=== PATIENT | female | born 2005 | race Caucasian/White ===

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

== ENCOUNTER 2024-10-11 12:07 | Emergency (ER) | payer SELFPAY ==
--- OUTSIDE RECORDS SUMMARY | 2024-10-11 12:11 | XMS REPORT | Continuity of Care Document ---
Author Name Unknown Address [address] [place] [address] [facility] thconnect Address [address] [place] [address] Care Team Providers Care Adhesion Tester Name Role Phone Muna Paredes Primary Care Physicia n DINO TREVINO Attending Clinician Unavailable DINO TREVINO Attending Clinician Unavailable Lory Cooper OD Attending Clinician [phone] Muna Paredes Attending Clinician + PARRISH LOWE Attending Clinician Unavail able Parrish Lowe OD Attending Clinician [phone] LORY COOPER Attending Clinician Unavailable MUNA LOPEZ Attending Clinician Unavail able Lory Cooper OD Attending Clinician [phone] PONCHO GREENWOOD Attending Clinician Unavailable PONCHO GREENWOOD Attending Clinician Unavailable Doctor Unassigned, Balm Attending Clinician U Aren Osei Attending Clinician UnaWAQAR Chavez Attending Clinician Unavailable DANIEL THOMAS Attending Clinician UnavailPantera Ferguson Attending Clinician + [phone] Unknown, Attending Attending Clinician Unavailab PANTERA Peace Attending Clinician Unavailab AREN Gonsales Attending Clinician Unavailab marie Bañuelos MD, Main Attending Clinician Dion Trevino MD Attending Clinician [phone] JUAN LUIS ALVARADO Attending Clinician Unavailable Lab, [facility] Attending Clinician Unavailable 3, [facility] Attending Clinician UnavailDINO Sorto Admitting Clinician Unavailable Dino Trevino MD Admitting Clinician [phone] JUAN LUIS ALVARADO Admitting Clinician Unavailable Payers Payer Name Policy Type Policy Number Effective Date Expirati on Date Source [facility] [id number] 2016 00:00:00 MEDICAID PENDING PENDING 2021 00:00:00 Problems Condition Name Condition Details Condition Category Status Onset Date Resolution Date Last Treatment Date Treating Clinician Comments Source Well woman exam Well woman exam Disease Active 05-24 00:00: 00 [facility] Need for HPV vaccinatio n Need for HPV vaccinatio n Disease Active 8 00:00: 00 [facility] Other general counseling and advice for contracept mali management Other general counseling and advice for contracept mali management Disease Active 15 00:00: 00 [facility] endometrit is endometrit is Disease Active 7-06 00:00: 00 [facility] Mild pre-eclamp devi in third trimester Mild pre-eclamp devi in third trimester Disease Active 6-25 00:00: 00 [facility] BMI 25.0-25.9, adult BMI 25.0-25.9, adult Disease Active 6-24 00:00: 00 [facility] BMI 25.0-25.9, adult BMI 25.0-25.9, adult Disease Active -24 00:00: 00 [facility] Examinatio n of blood pressure Examinatio n of blood pressure Disease Resolve d 7- 00:00: 00 2023-05-24 00:00:00 2023-05-24 09:28:35 [facility] (normal spontaneou s vaginal delivery) (normal spontaneou s vaginal delivery) Disease Resolve d 2021-0 6-25 00:00: 00 2022-04-28 00:00:00 2022-04-28 11:43:26 [facility] Single live Single live Disease Resolve d 2021-0 6-25 00:00: 00 2022-04-28 00:00:00 2022-04-28 11:43:23 [facility] 39 weeks gestation of 39 weeks gestation of Disease Resolve d 2021-0 6-24 00:00: 00 2022-04-28 00:00:00 2022-04-28 11:43:34 [facility] Supervisio n of high risk , antepartum Supervisio n of high risk , antepartum Disease Resolve d 2021-0 2-02 00:00: 00 2022-04-28 00:00:00 2022-04-28 11:43:22 [facility] Primigravi da in second trimester Primigravi da in second trimester Disease Resolve d 2021-0 2-02 00:00: 00 2022-04-28 00:00:00 2022-04-28 11:43:24 [facility] High risk teen in third trimester High risk teen in third trimester Disease Resolve d 2021-0 2-02 00:00: 00 2022-04-28 00:00:00 2022-04-28 11:43:31 [facility] Late care Late care Disease Resolve d 2021-0 2-02 00:00: 00 2022-04-28 00:00:00 2022-04-28 11:43:29 [facility] Chlamydia Chlamydia Disease Resolve d 2021-0 3-31 00:00: 00 2022-04-08 00:00:00 2022-04-08 04:06:35 [facility] Indication for care or interventi on in labor or delivery Indication for care or interventi on in labor or delivery Disease Resolve d 2021-0 6-24 00:00: 00 2022-04-07 00:00:00 2022-04-07 15:48:57 [facility] Allergies, Adverse Reactions, Alerts Allergy Name Allergy Type Status Severity Reaction(s) Onset Date Inactive Date Treating Clinician Comments Source NO KNOWN ALLERGIE S Drug Class Active [facility] Social History Social Habit Start Date Stop Date Quantity Comments Source ASSERTION [facility] Gender identity [facility] Alcoholic beverage intake 2024-02-04 00:00:00 2024-02-04 00:00:00 Lifetime non-drinker (finding) [facility] Alcohol intake 2024-02-04 00:00:00 2024-02-04 00:00:00 Lifetime non-drinker (finding) [facility] Exposure to SARS-CoV-2 (event) 2023-01-22 00:00:00 2023-02-01 16:16:00 Not sure [facility] History of Social function 2023-01-03 00:00:00 2023-01-03 00:00:00 [facility] Tobacco use and exposure 2021-11-16 00:00:00 2021-11-16 00:00:00 Smokeless tobacco non-user [facility] Sex assigned at 2003 00:00:00 2005 00:00:00 [facility] Smoking Status Start Date Stop Date Source Never smoked tobacco [facility] Medications Ordered Medication Name Filled Medication Name Start Date Stop Date Current Medication? Ordering Clinician Indication Dosage Frequency Signature (SIG) Comments Components Source norelgestro min-ethinyl estradiol (XULANE) 150-35 mcg/24 hr patch 06-02 00:00: 00 Yes [id number] 1{patch } APPLY 1 PATCH TO SKIN WEEKLY [facility] norelgestro min-ethinyl estradiol (XULANE) 150-35 mcg/24 hr patch 05-24 00:00: 00 Yes [id number] 1{patch } Apply 1 Patch to skin weekly. [facility] norelgestro min-ethinyl estradiol (XULANE) 150-35 mcg/24 hr patch 04-05 00:00: 05-24 00:00 :00 No [id number] 1{patch } Apply 1 Patch to skin weekly. [facility] levonorgest rel-ethinyl estradiol (SRONYX) 0.1-20 mg-mcg per tablet 01-03 00:00: 00 05-24 00:00 :00 No [id number] 1{tbl} Take 1 tablet by mouth in the morning. [facility] norgestimat e-ethinyl estradioL (TRI-LO-EST ARYLLA) 0.18/0.215/ 0.25 mg-25 mcg tablet 10-23 00:00: 00 02-02 00:00 :00 No [id number] 1{tbl} Take 1 tablet by mouth every morning. [facility] TRI-LO-ESTA RYLLA 0.18/0.215/ 0.25 mg-25 mcg tablet 2021-10 00:00: 00 10-23 00:00 :00 No [id number] TAKE 1 TABLET BY MOUTH EVERY DAY IN THE MORNING [facility] oseltamivir (TAMIFLU) 75 mg capsule 2021-10 00:00: 00 09-17 05:59 :00 No [id number] 75mg Take 1 capsule by mouth in the morning and 1 capsule in the evening. Do all this for 5 days. [facility] bromphenira mine-pseudo ephedrine-D M 2-30-10 mg/5 mL syrup 2021-10 00:00: 00 09-17 05:59 :00 No [id number] 5mL Take 5 mL by mouth 4 (four) times daily as needed for Congestion /Allergies for up to 5 days. [facility] TRI-LO-ESTA RYLLA 0.18/0.215/ 0.25 mg-25 mcg tablet 2021-10 00:00: 00 09-22 00:00 :00 No [id number] TAKE 1 TABLET BY MOUTH EVERY DAY IN THE MORNING [facility] norgestimat e-ethinyl estradioL 0.18/0.215/ 0.25 mg-25 mcg tablet 06-05 00:00: 00 08-25 00:00 :00 No [id number] 1{tbl} Take 1 tablet by mouth in the morning. [facility] vit no.124/iron /folic ( VITAMIN ORAL) 6- 09:48: 49 04-09 00:00 :00 No Take by mouth. [facility] vit 33-iron-fol ic-dha (SELECT-OB + DHA) 29 mg iron-1 mg -250 mg combo pack 3- 00:00: 00 05-22 00:00 :00 No [id number] 1{packe t} Take 1 Packet by mouth daily. [facility] azithromyci n 500 mg tablet 11-18 00:00: 00 11-20 05:59 :00 No [id number] 1000mg Take 2 tablets by mouth daily for 1 day. [facility] Immunizations Ordered Immunization Name Filled Immunization Name Date Status Comments Source [facility] 2023-04-05 00:00:00 Completed [facility] HPV9 2023-04-05 00:00:00 Completed [facility] 2023-04-05 00:00:00 Completed [facility] HPV9 2023-04-05 00:00:00 Completed [facility] 2022-05-22 00:00:00 Completed [facility] 2022-05-22 00:00:00 Completed [facility] 2022-05-22 00:00:00 Completed [facility] HPV9 2022-05-22 00:00:00 Completed [facility] HPV9 2022-05-22 00:00:00 Completed [facility] HPV9 2022-05-22 00:00:00 Completed [facility] HPV9 2022-05-22 00:00:00 Completed [facility] HPV9 2022-05-22 00:00:00 Completed [facility] HPV9 2022-05-22 00:00:00 Completed [facility] HPV9 2022-05-22 00:00:00 Completed [facility] HPV9 2022-05-22 00:00:00 Completed [facility] HPV9 2022-05-22 00:00:00 Completed [facility] HPV9 2022-05-22 00:00:00 Completed [facility] HPV9 2022-05-22 00:00:00 Completed [facility] HPV9 2022-05-22 00:00:00 Completed [facility] HPV9 2022-05-22 00:00:00 Completed [facility] HPV9 2022-05-22 00:00:00 Completed [facility] HPV9 2022-05-22 00:00:00 Completed [facility] TDAP 2022-01-26 00:00:00 Completed [facility] TDAP 2022-01-26 00:00:00 Completed [facility] TDAP 2022-01-26 00:00:00 Completed [facility] TDAP 2022-01-26 00:00:00 Completed [facility] TDAP 2022-01-26 00:00:00 Completed [facility] TDAP 2022-01-26 00:00:00 Completed [facility] TDAP 2022-01-26 00:00:00 Completed [facility] TDAP 2022-01-26 00:00:00 Completed [facility] TDAP 2022-01-26 00:00:00 Completed [facility] TDAP 2022-01-26 00:00:00 Completed [facility] TDAP 2022-01-26 00:00:00 Completed [facility] TDAP 2022-01-26 00:00:00 Completed [facility] TDAP 2022-01-26 00:00:00 Completed [facility] TDAP 2022-01-26 00:00:00 Completed [facility] TDAP 2022-01-26 00:00:00 Completed [facility] TDAP 2022-01-26 00:00:00 Completed [facility] TDAP 2022-01-26 00:00:00 Completed [facility] TDAP 2022-01-26 00:00:00 Completed [facility] HPV9 Unknown Completed [facility] TDAP Unknown Completed [facility] HPV9 Unknown Completed [facility] TDAP Unknown Completed [facility] HPV9 Unknown Completed [facility] TDAP Unknown Completed [facility] HPV9 Unknown Completed [facility] TDAP Unknown Completed [facility] HPV9 Unknown Completed [facility] TDAP Unknown Completed [facility] HPV9 Unknown Completed [facility] TDAP Unknown Completed [facility] TDAP Unknown Completed [facility] TDAP Unknown Completed [facility] HPV9 Unknown Completed [facility] TDAP Unknown Completed [facility] HPV9 Unknown Completed [facility] TDAP Unknown Completed [facility] HPV9 Unknown Completed [facility] TDAP Unknown Completed [facility] Vital Signs Vital Name Observation Time Observation Value Comments S ource Body weight 2024-02-04 18:07:00 58.968 kg [facility] Systolic blood pressure 2023-05-24 14:04:00 101 mm[Hg] [facility] Diastolic blood pressure 2023-05-24 14:04:00 73 mm[Hg] [facility] Heart rate 2023-05-24 14:04:00 72 /min [facility] Body temperature 2023-05-24 14:04:00 36.11 Skye [facility] Respiratory rate 2023-05-24 14:04:00 18 /min [facility] Body height 2023-05-24 14:04:00 167.6 cm [facility] Body weight 2023-05-24 14:04:00 59.081 kg [facility] BMI 2023-05-24 14:04:00 21.02 kg/m2 [facility] Systolic blood pressure 2023-04-05 20:35:00 113 mm[Hg] [facility] Diastolic blood pressure 2023-04-05 20:35:00 65 mm[Hg] [facility] Heart rate 2023-04-05 20:35:00 71 /min [facility] Body temperature 2023-04-05 20:35:00 36.83 Skye [facility] Respiratory rate 2023-04-05 20:35:00 16 /min [facility] Body height 2023-04-05 20:35:00 167.6 cm [facility] Body weight 2023-04-05 20:35:00 58.333 kg [facility] BMI 2023-04-05 20:35:00 20.76 kg/m2 [facility] Systolic blood pressure 2023-01-03 19:47:00 123 mm[Hg] [place] [facility] Diastolic blood pressure 2023-01-03 19:47:00 81 mm[Hg] [facility] Heart rate 2023-01-03 19:47:00 107 /min [facility] Body temperature 2023-01-03 19:47:00 37 Skye [facility] Respiratory rate 2023-01-03 19:47:00 18 /min [facility] Body height 2023-01-03 19:47:00 167.6 cm [facility] Body weight 2023-01-03 19:47:00 60.056 kg [facility] BMI 2023-01-03 19:47:00 21.37 kg/m2 [facility] Systolic blood pressure 2022-10-23 19:19:00 115 mm[Hg] [facility] Diastolic blood pressure 2022-10-23 19:19:00 70 mm[Hg] [facility] Heart rate 2022-10-23 19:19:00 78 /min [facility] Body temperature 2022-10-23 19:19:00 36.5 Skye [facility] Respiratory rate 2022-10-23 19:19:00 20 /min [facility] Body height 2022-10-23 19:19:00 167.6 cm [facility] Body weight 2022-10-23 19:19:00 60.601 kg [facility] BMI 2022-10-23 19:19:00 21.56 kg/m2 [facility] Body mass index (BMI) [Percentile] Per age and sex 2022-10-23 19:19:00 50.73 % [facility] Systolic blood pressure 2022-09-12 00:06:00 110 mm[Hg] [facility] Diastolic blood pressure 2022-09-12 00:06:00 73 mm[Hg] [facility] Heart rate 2022-09-12 00:06:00 103 /min [facility] Body temperature 2022-09-12 00:06:00 37.22 Skye [facility] Respiratory rate 2022-09-12 00:06:00 17 /min [facility] Body height 2022-09-12 00:06:00 167.6 cm [facility] Body weight 2022-09-12 00:06:00 58.968 kg [facility] BMI 2022-09-12 00:06:00 20.98 kg/m2 [facility] Body mass index (BMI) [Percentile] Per age and sex 2022-09-12 00:06:00 43.60 % [facility] Oxygen saturation in Arterial blood by Pulse oximetry 2022-09-12 00:06:00 98 /min [facility] Systolic blood pressure 2022-07-26 20:19:00 115 mm[Hg] [facility] Diastolic blood pressure 2022-07-26 20:19:00 70 mm[Hg] [facility] Heart rate 2022-07-26 20:19:00 86 /min [facility] Body temperature 2022-07-26 20:19:00 36.67 Skye [facility] Respiratory rate 2022-07-26 20:19:00 16 /min [facility] Body height 2022-07-26 20:19:00 167.6 cm [facility] Body weight 2022-07-26 20:19:00 61.326 kg [facility] BMI 2022-07-26 20:19:00 21.82 kg/m2 [facility] Body mass index (BMI) [Percentile] Per age and sex 2022-07-26 20:19:00 54.65 % [facility] Oxygen saturation in Arterial blood by Pulse oximetry 2022-07-26 20:19:00 99 /min [facility] Systolic blood pressure 2022-06-05 18:14:00 131 mm[Hg] [facility] Diastolic blood pressure 2022-06-05 18:14:00 80 mm[Hg] [facility] Heart rate 2022-06-05 18:14:00 77 /min [facility] Body temperature 2022-06-05 18:14:00 35.89 Skye [facility] Respiratory rate 2022-06-05 18:14:00 18 /min [facility] Body weight 2022-06-05 18:14:00 61.689 kg [facility] Procedures Procedure Date / Time Performed Performing Clinicia n Source GARDASIL 9 (HPV 9V) VACCINE 2023-04-05 20:48:14 Muna Lopez [facility] REFERRAL- REQUEST/RESPONSE 2023-01-29 05:01:00 Doctor Unassigned, Balm [facility] POCT MOLECULAR FLU 2022-09-12 00:09:00 Unknown, Attend ing [facility] POCT MOLECULAR STREP 2022-09-12 00:08:00 Unknown, Atte nding [facility] POCT TEST 2022-06-05 18:21:00 Daily Morgan [facility] Encounters Start Date/Time End Date/Time Encounter Type Admission Type Attending Clinicians Care Facility Care Department Encounter ID Source 2022-04-19 00:06:35 Outpatient P DINO TREVINO SANGEETA [facility] PRABHJOT [id number] [facility] 2024-07-18 00:00:00 2024-08-23 18:26:05 Patient Secure Lory Pollard [facility] [place] [id number] [id number] [id number] [facility] 2024-03-15 00:00:00 2024-03-17 09:52:08 Refill Muna Lopez [facility] MANAGER [facility] [id number] 350.1.13.10 [id number] [id number] [facility] 2024-02-04 13:00:00 2024-02-04 13:39:22 Outpatient R PARRISH LOWE [facility] [id number] [facility] 2024-02-04 13:00:00 2024-02-04 13:39:22 Office Visit Parrish Lowe [facility] [id number] [id number] [id number] [id number] [facility] 2023-08-07 15:00:00 2023-08-07 15:00:00 Outpatient R [facility] [id number] [facility] 2023-05-24 09:00:00 2023-05-24 09:33:54 Outpatient R MUNA LOPEZ [facility] [id number] [facility] 2023-05-24 09:00:00 2023-05-24 09:33:54 Office Visit Muna Lopez [facility] MANAGER REGIST[facility]ATION [facility] [id number] [id number] [id number] [facility] 2023-05-24 00:00:00 2023-05-24 00:00:00 Refill Muna Lopez [facility] MANAGER REGIST[facility]ATION [facility] [id number] [id number] [id number] [id number] [facility] 2023-05-23 13:00:00 2023-05-23 13:00:00 Outpatient R MUNA LOPEZ [facility] [id number] [facility] 2023-04-05 15:15:00 2023-04-05 15:51:47 Outpatient R CARLOS MUNA [facility] [id number] [facility] 2023-04-05 15:15:00 2023-04-05 15:51:47 Office Visit Muna Lopez [facility] MANAGER REG[facility] [id number] [id number] [id number] [id number] [facility] 2023-03-31 00:00:00 2023-03-31 00:00:00 Refill Muna Lopez [facility] MANAGER REG[facility] 1..114 350.1.13.10 4.2.7.2.686 [id number] [facility] 2023-02-02 10:45:00 2023-02-02 11:30:32 Outpatient N KENNETH [facility] [id number] [facility] 2023-02-02 10:45:00 2023-02-02 11:30:32 Office Visit Kenneth [facility] 1..114 350.1.13.10 4.2.7.2.686 [id number] [facility] 2023-02-02 10:45:00 2023-02-02 10:45:00 Outpatient N KENNETH [facility] [id number] [facility] 2023-01-30 14:15:00 2023-01-30 14:15:00 Outpatient R PONCHO GREENWOOD RENUKA [facility] [id number] [facility] 2023-01-29 00:00:00 2023-01-29 00:00:00 Orders Only Doctor Unassigned, Balm [facility] 1.840.114 350.1.13.10 4.2.7.2.686 [id number] [facility] 2023-01-03 15:15:00 2023-01-03 15:15:00 Office Visit Muna Lopez [facility] MANAGER REGIST[facility] 1.0.114 350.1.13.10 [id number] [id number] [facility] 2023-01-03 15:15:00 2023-01-03 15:06:03 Outpatient R MUNA LOPEZ [facility] [id number] [facility] 2022-12-26 00:00:00 2022-12-26 00:00:00 Telephone Muna Lopez [facility] MANAGER REGISTRATION [facility] 1..114 350.1.13.10 4.2.7.2.686 [id number] [facility] 2022-12-15 00:00:00 2022-12-15 00:00:00 Patient Secure Msg Muna Lopez [facility]..114 350.1.13.10 [id number] [id number] 107 [id number] [facility] 2022-11-21 00:00:00 2022-11-21 00:00:00 Patient Secure Msg Doctor Unassigned, Balm [facility] .114 350.1.13.10 4.2.7.2.686 [id number] [facility] 2022-11-16 00:00:00 2022-11-16 00:00:00 Refill Muna Lopez [facility] MANAGER REGISTRATION [facility] CHILD [facility] 1..114 350.1.13.10 4.2.7.2.686 [id number] 107 [id number] [facility] 2022-10-23 13:00:00 2022-10-23 13:48:25 Outpatient R AUSTIN LOPEZILOLA [facility] [id number] [facility] 2022-10-23 13:00:00 2022-10-23 13:48:25 Office Visit Austin Lopezjem Darnell [facility] MANAGER REGISTRATION [facility] 1.2.840.114 350.1.13.10 4.2.7.2.686 [id number] 107 [id number] [facility] 2022-10-19 00:00:00 2022-10-19 00:00:00 Patient Secure Kelli Owenstomiguevara Stroud [facility] MANAGER REGISTRATION [facility] 1.2.840.114 350.1.13.10 4.2.7.2.686 [id number] 107 [id number] [facility] 2022-09-22 00:00:00 2022-09-22 00:00:00 Refill Muna Lopez [facility] MANAGER REGISTRATION [facility] CHILD [facility] 1.2.840.114 350.1.13.10 4.2.7.2.686 [id number] 107 [id number] [facility] 2022-09-16 10:00:00 2022-09-16 10:00:00 Outpatient R WAQAR GODDARD [facility] [id number] [facility] 2022-09-16 00:00:00 2022-09-16 00:00:00 Patient Secure Aren Owens Luanne [facility] MANAGER REGISTRATION [facility] 1.2.840.114 350.1.13.10 4.2.7.2.686 [id number] 107 [id number] [facility] 2022-09-12 14:30:00 2022-09-12 14:30:00 Outpatient R DANIEL THOMAS [facility] [id number] [facility] 2022-09-11 18:00:00 2022-09-11 18:20:00 Urgent Care Pantera Freitas, Attending [facility] 1.84.114 350.1.13.10 4.2.7.2.686 [id number] [facility] 2022-09-11 18:00:00 2022-09-11 18:00:00 Outpatient R PANTERA FREITAS [facility] [id number] [facility] 2022-09-11 00:00:00 2022-09-11 00:00:00 Patient Secure Msg Doctor Unassigned, Balm [facility] 1.84.114 350.1.13.10 4.2.7.2.686 [id number] [facility] 2022-09-11 00:00:00 2022-09-11 00:00:00 Patient Secure Msg Aren Morgan [facility] MANAGER REGISTRATION [facility] 1.840.114 350.1.13.10 4.2.7.2.686 [id number] 107 [id number] [facility] 2022-09-05 09:45:00 2022-09-05 09:45:00 Outpatient R AREN MORGAN [facility] [id number] [facility] 2022-09-05 09:45:00 2022-09-05 09:45:00 Outpatient AREN JACOBS [facility] [id number] [facility] 2022-08-26 00:00:00 2022-08-26 00:00:00 RefAren Gastelum [facility] MANAGER REGISTRATION [facility] CHILD [facility] 1.840.114 350.1.13.10 4.2.7.2.686 [id number] 107 [id number] [facility] 2022-08-25 00:00:00 2022-08-25 00:00:00 Aren Bryan [facility] MANAGER REGISTRATION [facility] 1.2.840.114 350.1.13.10 4.2.7.2.686 [id number] 107 [id number] [facility] 2022-07-26 15:00:00 2022-07-26 15:30:59 Outpatient R AREN MORGAN [facility] [id number] [facility] 2022-07-26 15:00:00 2022-07-26 15:30:59 Office Visit Aren Morgan [facility] MANAGER REGISTRATION [facility] 1.2.840.114 350.1.13.10 4.2.7.2.686 [id number] 107 [id number] [facility] 2022-07-24 00:00:00 2022-07-24 00:00:00 Patient Secure Msg Aren Morgan [facility] MANAGER REGISTRATION [facility] 1.2.840.114 350.1.13.10 4.2.7.2.686 [id number] 107 [id number] [facility] 2022-07-24 00:00:00 2022-07-24 00:00:00 Telephone Aren Morgan [facility] MANAGER REGISTRATION [facility] 1.2.840.114 350.1.13.10 4.2.7.2.686 [id number] 107 [id number] [facility] 2022-06-05 13:00:00 2022-06-05 13:32:46 Office Visit MorganAren [facility] MANAGER REGISTRATION [facility]ILD [facility] 1.2.840.114 350.1.13.10 4.2.7.2.686 [id number] 107 [id number] [facility] 2022-06-05 13:00:00 2022-06-05 13:32:46 Outpatient R AREN MORGAN [facility] [id number] [facility] 2022-06-05 13:00:00 2022-06-05 13:00:00 Outpatient R AREN MORGAN [facility] [id number] [facility] 2022-06-05 13:00:00 2022-06-05 13:00:00 Outpatient R AREN MORGAN [facility] [id number] [facility] 2022-05-22 10:45:00 2022-05-22 12:15:23 Outpatient R AREN MORGAN [facility] [id number] [facility] 2022-05-22 10:45:00 2022-05-22 12:15:23 Office Visit Aren Morgan [facility] MANAGER REGISTRATION [facility] MATERNAL & CHILD [facility] 1..840.114 350.1.13.10 4.2.7.2.686 [id number] 107 [id number] [facility] 2022-04-28 10:30:00 2022-04-28 11:11:18 Outpatient R MUNA LOPEZ [facility] [id number] [facility] 2022-04-28 10:30:00 2022-04-28 11:11:18 Routine Visit Muna Lopez [facility] MANAGER REGISTRATION [facility] 1.840.114 350.1.13.10 4.2.7.2.686 [id number] 107 [id number] [facility] 2022-04-28 10:30:00 2022-04-28 11:11:18 Outpatient R MUNA LOPEZ [facility] [id number] [facility] 2022-04-18 19:25:00 2022-04-20 18:25:00 Inpatient X DINO TREVINO SANGEETA [facility] [id number] [facility] 2022-04-18 19:25:00 2022-04-20 18:25:00 Hospital Encounter Main Bañuelos Sangeeta [facility] 1.840.114 350.1.13.10 4.2.7.2.686 [id number] [facility] 2022-04-14 10:30:00 2022-04-14 11:04:03 Outpatient R MUNA LOPEZ [facility] [id number] [facility] 2022-04-14 10:30:00 2022-04-14 11:04:03 Routine Visit Muna Lopez [facility] MANAGER REGISTRATION [facility] ..840.114 350.1.13.10 4.2.7.2.686 [id number] 107 [id number] [facility] 2022-04-07 07:16:00 2022-04-09 18:10:00 Inpatient P JUAN LUIS ALVARADO [facility] PRABHJOT [id number] [facility] 2022-04-07 07:16:00 2022-04-09 18:10:00 Hospital Encounter Juan Luis Alvarado [facility] ..840.114 350.1.13.10 4.2.7.2.686 [id number] [facility] 2022-04-05 13:45:00 2022-04-05 14:23:05 Outpatient R AREN MORGAN [facility] [id number] [facility] 2022-04-05 13:45:00 2022-04-05 14:23:05 Routine Visit Aren Morgan [facility] MANAGER REGISTRATION [facility] ..840.114 350.1.13.10 4.2.7.2.686 [id number] 107 [id number] [facility] 2022-03-29 14:00:00 2022-03-29 14:29:03 Outpatient R AREN MORGAN [facility] [id number] [facility] 2022-03-29 14:00:00 2022-03-29 14:29:03 Routine Visit Aren Morgan [facility] MANAGER REGISTRATION [facility] 1.2.840.114 350.1.13.10 4.2.7.2.686 [id number] 107 [id number] [facility] 2022-03-29 14:00:00 2022-03-29 14:00:00 Outpatient AREN JACOBS [facility] [id number] [facility] 2022-03-23 13:00:00 2022-03-23 13:00:00 Outpatient R AREN MORGAN [facility] [id number] [facility] 2022-03-23 13:00:00 2022-03-23 13:00:00 Outpatient R KELLI MORGANGUEVARA [facility] [id number] [facility] 2022-03-23 13:00:00 2022-03-23 13:00:00 Director Of Category Management Visit Lab, [facility] Kelli Morgansilvino [facility] MANAGER REGISTRATION [facility] 1.2.840.114 350.1.13.10 4.2.7.2.686 [id number] 107 [id number] [facility] 2022-03-23 00:00:00 2022-03-23 00:00:00 Telephone Candido Morganlayla [facility] MANAGER REGISTRATION [facility] 1.2.840.114 350.1.13.10 4.2.7.2.686 [id number] 107 [id number] [facility] 2022-03-22 15:30:00 2022-03-22 15:57:01 Outpatient R AREN MORGAN [facility] [id number] [facility] 2022-03-22 15:30:00 2022-03-22 15:57:01 Routine Visit Kelli Morgansilvino [facility] MANAGER REGISTRATION [facility] 1.2.840.114 350.1.13.10 4.2.7.2.686 [id number] 107 [id number] [facility] 2022-03-22 15:30:00 2022-03-22 15:57:01 Outpatient AREN JACOBS [facility] [id number] [facility] 2022-03-15 15:30:00 2022-03-15 15:49:16 Outpatient AREN JACOBS [facility] [id number] [facility] 2022-03-15 15:30:00 2022-03-15 15:49:16 Routine Visit Candido Morganlayla Stroud [facility] MANAGER REGISTRATION [facility] 1.2.840.114 350.1.13.10 4.2.7.2.686 [id number] 107 [id number] [facility] 2022-03-09 15:30:00 2022-03-09 15:30:00 Outpatient AREN JACOBS [facility] [id number] [facility] 2022-02-24 00:00:00 2022-02-24 00:00:00 Patient Secure Msg Josiah Morganguevara [facility] MANAGER REGISTRATION [facility] 1.2.840.114 350.1.13.10 4.2.7.2.686 [id number] 107 [id number] [facility] 2022-02-24 00:00:00 2022-02-24 00:00:00 Letter (Out) Candido Morganlayla [facility] MANAGER REGISTRATION [facility] 1.2.840.114 350.1.13.10 4.2.7.2.686 [id number] 107 [id number] [facility] 2022-02-23 07:45:00 2022-02-23 08:21:30 Outpatient AREN JACOBS [facility] [id number] [facility] 2022-02-23 07:45:00 2022-02-23 08:21:30 Routine Visit Candido Morganlayla [facility] MANAGER REGISTRATION [facility] 1.2.840.114 350.1.13.10 4.2.7.2.686 [id number] 107 [id number] [facility] 2022-02-09 07:45:00 2022-02-09 08:21:37 Outpatient AREN JACOBS [facility] [id number] [facility] 2022-02-09 07:45:00 2022-02-09 08:21:37 Routine Visit Aren Morgan [facility] MANAGER REGISTRATION [facility] MATERNAL & CHILD [facility] 1.840.114 350.1.13.10 4.2.7.2.686 [id number] 107 [id number] [facility] 2022-02-09 07:45:00 2022-02-09 07:45:00 Outpatient AREN JACOBS [facility] [id number] [facility] 2022-01-26 10:45:00 2022-01-26 11:16:45 Outpatient R AREN MORGAN [facility] [id number] [facility] 2022-01-26 10:45:00 2022-01-26 11:16:45 Routine Visit Aren Morgan [facility] MANAGER REGISTRATION [facility] ..840.114 350.1.13.10 4.2.7.2.686 [id number] 107 [id number] [facility] 2022-01-26 10:45:00 2022-01-26 10:45:00 Outpatient AREN JACOBS [facility] [id number] [facility] 2022-01-26 00:00:00 2022-01-26 00:00:00 Patient Secure Msg Aren Morgan [facility] MANAGER REGISTRATION [facility] 1..840.114 350.1.13.10 4.2.7.2.686 [id number] 107 [id number] [facility] 2022-01-26 00:00:00 2022-01-26 00:00:00 Letter (Out) Aren Morgan [facility] MANAGER REGISTRATION [facility] 1.2.840.114 350.1.13.10 4.2.7.2.686 [id number] 107 [id number] [facility] 2022-01-19 00:00:00 2022-01-19 00:00:00 Patient Secure Aren Owens [facility] MANAGER REGISTRATION [facility] CHILD [facility] 1.2.840.114 350.1.13.10 4.2.7.2.686 [id number] 107 [id number] [facility] 2022-01-18 00:00:00 2022-01-18 00:00:00 Patient Secure Aren Owens [facility] MANAGER REGISTRATION [facility] 1.2.840.114 350.1.13.10 4.2.7.2.686 [id number] 107 [id number] [facility] 2022-01-12 10:15:00 2022-01-12 11:01:44 Routine Visit Candido Morganlayla Stroud [facility] MANAGER REGISTRATION [facility] 1.2.840.114 350.1.13.10 4.2.7.2.686 [id number] 107 [id number] [facility] 2022-01-12 10:15:00 2022-01-12 11:01:44 Outpatient Luanne MORGAN AREN [facility] [id number] [facility] 2022-01-12 10:15:00 2022-01-12 10:15:00 Outpatient Luanne MORGAN AREN [facility] [id number] [facility] 2022-01-12 00:00:00 2022-01-12 00:00:00 Letter (Out) Candido Morganlayla [facility] MANAGER REGISTRATION [facility] 1.2.840.114 350.1.13.10 4.2.7.2.686 [id number] 107 [id number] [facility] 2021-12-28 10:00:00 2021-12-28 10:46:09 Outpatient R MUNA LOPEZ [facility] [id number] [facility] 2021-12-28 10:00:00 2021-12-28 10:15:00 Routine Visit Muna Lopez [facility] MANAGER REGISTRATION [facility] 1.2840.114 350.1.13.10 4.2.7.2.686 [id number] 107 [id number] [facility] 2021-12-19 00:00:00 2021-12-19 00:00:00 Abstract MorganAren [facility] MANAGER REGISTRATION [facility] 1.2.840.114 350.1.13.10 4.2.7.2.686 [id number] 107 [id number] [facility] 2021-12-19 00:00:00 2021-12-19 00:00:00 Abstract EfeAren [facility] MANAGER REGISTRATION [facility] 1.840.114 350.1.13.10 4.2.7.2.686 [id number] 107 [id number] [facility] 2021-12-16 15:00:00 2021-12-16 16:13:44 Director Of Category Management Visit 3, [facility] 1.840.114 350.1.13.10 4.2.7.2.686 [id number] [facility] 2021-12-16 15:00:00 2021-12-16 15:00:00 Outpatient P DINO TREVINO SANGEETA [facility] [id number] [facility] 2021-12-16 00:00:00 2021-12-16 00:00:00 [facility] (Out[facility] 1.2840.114 350.1.13.10 4.2.7.2.686 [id number] 104 [id number] [facility] 2021-12-14 10:15:00 2021-12-14 11:05:12 Outpatient R AREN MORGAN [facility] [id number] [facility] 2021-12-14 10:15:00 2021-12-14 11:05:12 Routine Visit Aren Morgan [facility] MANAGER REGISTRATION [facility] 1.2840.114 350.1.13.10 4.2.7.2.686 [id number] 107 [id number] [facility] 2021-12-14 10:15:00 2021-12-14 10:15:00 Outpatient R AREN MORGAN [facility] [id number] [facility] 2021-12-14 00:00:00 2021-12-14 00:00:00 Letter (Out) Aren Morgan [facility] MANAGER REGISTRATION [facility] 1.2840.114 350.1.13.10 4.2.7.2.686 [id number] 107 [id number] [facility] 2021-12-12 00:00:00 2021-12-12 00:00:00 Patient Secure Aren Owens [facility] MANAGER REGISTRATION [facility] 1.2.840.114 350.1.13.10 4.2.7.2.686 [id number] 107 [id number] [facility] 2021-11-28 00:00:00 2021-11-28 00:00:00 Patient Secure Aren Owens [facility] MANAGER REGISTRATION [facility] 1.2.840.114 350.1.13.10 4.2.7.2.686 [id number] 107 [id number] [facility] 2021-11-25 00:00:00 2021-11-25 00:00:00 Patient Secure Aren Owens [facility] MANAGER REGISTRATION [facility] MATERNAL & CHILD [facility] 1.2.840.114 350.1.13.10 4.2.7.2.686 [id number] 107 [id number] [facility] 2021-11-21 00:00:00 2021-11-21 00:00:00 Patient Secure Aren Owens [facility] MANAGER REGISTRATION [facility] 1.2.840.114 350.1.13.10 4.2.7.2.686 [id number] 107 [id number] [facility] 2021-11-21 00:00:00 2021-11-21 00:00:00 Patient Secure Aren Owens [facility] MANAGER REGISTRATION [facility] 1.2.840.114 350.1.13.10 4.2.7.2.686 [id number] 107 [id number] [facility] 2021-11-18 00:00:00 2021-11-18 00:00:00 Patient Secure Aren Owens [facility] MANAGER REGISTRATION [facility] 1.2.840.114 350.1.13.10 4.2.7.2.686 [id number] 107 [id number] [facility] 2021-11-18 00:00:00 2021-11-18 00:00:00 Telephone Aren Morgan [facility] MANAGER REGISTRATION [facility] MATERNAL & CHILD [facility] 1.2.840.114 350.1.13.10 4.2.7.2.686 [id number] 107 [id number] [facility] 2021-11-16 09:45:00 2021-11-16 10:49:53 Outpatient R AREN MORGAN [facility] [id number] [facility] 2021-11-16 09:45:00 2021-11-16 10:49:53 Initial Visit Aren Morgan [facility] MANAGER REGISTRATION [facility] MATERNAL & CHILD [facility]ALTH [facility] 1.840.114 350.1.13.10 4.2.7.2.686 [id number] 107 [id number] [facility] 2021-11-16 09:15:00 2021-11-16 10:49:40 Outpatient AREN JACOBS [facility] [id number] [facility] 2021-11-16 09:15:00 2021-11-16 09:15:00 Outpatient AREN JACOBS [facility] [id number] [facility] 2021-11-16 00:00:00 2021-11-16 00:00:00 Orders Only Doctor Unassigned, Balm [facility] 1.840.114 350.1.13.10 4.2.7.2.686 [id number] [facility] Results Test Description Test Time Test Comments Results Result Co mments Source [facility] [id number] 00:14:45* Test Item Value Reference Range Interpretation Comme nts POCT Molecular FluA (test co de = 55906-6) Positive Negative A Lab Interpretation (test cod e = 61758-0) Abnormal [facility] [id number] 18:21:00* Test Item Value Reference Range Interpretation Comme nts POCT PREG (test code = 1605) Negative On board controls acceptable with C Line (test code = 3574) Yes POCT PREG LOT # (test code = 3575) POCT PREG TEST DATE ( test code = 3576) [facility] [id number] 18:21:00* Test Item Value Reference Range Interpretation Comme nts POCT PREG (test code = 1605) Negative On board controls acceptable with C Line (test code = 3574) Yes POCT PREG LOT # (test code = 3575) POCT PREG TEST DATE ( test code = 3576) [facility]
[2024-10-11 14:42] LABS: Absolute Eosinophils 0.1 K/uL (0-0.5); Absolute Lymphocytes (CBC) 2.4 K/uL (0.7-4.9); Absolute Monocytes 0.5 K/uL (0.1-1.3); Absolute Neutrophil 4.7 K/uL (1.8-8.0); Basophils % 0.6 % (0-1.3); Eosinophils % 1.2 % (0-4.4); Hematocrit 42.6 % (36.0-45.0); Hemoglobin 14.1 g/dL (12.0-15.0); Lymphocytes % 31.2 % (15.3-44.8); MCH 29.2 pg (27.0-35.0); MCHC 33.1 g/dL (32.0-36.0); MCV 88.2 fL (80-100); MPV 8.3 fL (7.6-11.3); Monocytes % 6.6 % (3.3-12.3); Neutrophils % 60.4 % (41.7-73.7); Platelets 283 thou/uL (152-406); RBC Red Blood Cell Count 4.84 M/uL (3.86-4.86); Red Cell Distribution Width 13.4 % (12.1-15.2)
[2024-10-11 14:57] LABS: Albumin 3.7 g/dL (3.4-5.0); Albumin/Globulin Ratio 0.9 (1.1-1.8); Anion Gap 6.5 mEq/L (5.0-15.0); Bilirubin Total 0.4 mg/dL (0.2-1.0); Potassium 3.5 mEq/L (3.5-5.1); Protein, Total 7.7 g/dL (6.4-8.2)
[2024-10-11 15:35] LABS: Specific Gravity 1.012 (1.005-1.030); Urine Bacteria None Seen /HPF (<20); Urine Bilirubin NEGATIVE (Negative); Urine Blood Negative (Negative); Urine Clarity Extremely Turbid (Clear); Urine Color Light-Yellow (Yellow); Urine Culture Reflex Order NOT NEEDED; Urine Glucose NEGATIVE (Negative); Urine Ketones NEGATIVE (Negative); Urine Microscopic Reflex YN ORDER UMIC; Urine Mucus 1+ /HPF (None Seen); Urine Nitrite NEGATIVE (Negative); Urine Protein NEGATIVE (Negative); Urine RBC <5 /HPF (None Seen); Urine Urobilinogen Normal (Normal); Urine pH 5.5 (5.0-7.0)
[2024-10-11 15:37] LABS: Specific Gravity 1.012 (1.005-1.030)
--- NOTE | 2024-10-11 15:42 | RAD REPORT ---
EXAM: Chest Pa And Lat (2 Views) HISTORY: chest wall pain, right lateral COMPARISON: None. FINDINGS: LUNGS/PLEURA: Pleural thickening present. Question tiny calcified bilateral pulmonary nodules. MEDIASTINUM: The mediastinal silhouette is within normal limits. CARDIAC: The cardiac silhouette is within normal limits. UPPER ABDOMEN: No significant abnormality. BONES: No acute fracture. LINES/TUBES/OTHER: N/A IMPRESSION: Question bronchitis without evidence of consolidative airspace disease.
--- NOTE | 2024-10-11 15:59 | EDPHYS ---
Physician Documentation [facility] Name: Edilma Potter Age: 18 yrs Sex: Female : 2005 Arrival Date: 10/11/2024 Time: 12:07 Bed 10 Private MD: ED Physician Tee Kent HPI: 10/11 16:19 This 18 yrs old Female presents to ER via Ambulatory with complaints of Flank Pain, sb4 Nausea. 16:24 right upper side pain x 1 week. denies any injury, cough, or URI symptoms. otherwise sb4 healthy. has not taken any medication for the pain. Historical: - Allergies: 12:48 No Known Allergies; hb - Home Meds: 12:48 None [Active]; hb - PMHx: 12:48 None; hb - PSHx: 12:48 None; hb - Immunization history:: Adult Immunizations up to date. - Infectious Disease History:: Denies. - Social history:: Smoking status: Patient denies any tobacco usage or history of. ROS: 16:24 Constitutional: Negative for fever, chills, and weight loss, sb4 16:24 MS/extremity: Positive for injury or acute deformity, pain, of the right lateral anterior chest, 16:24 All other systems are negative, Exam: 16:24 Constitutional: This is a well developed, well nourished patient who is awake, alert, sb4 and in no acute distress. Head/Face: Normocephalic, atraumatic. Eyes: Extra-ocular motions intact. Periorbital areas with no swelling, redness, or edema. ENT: Mucous membranes moist. Chest/axilla: Normal chest wall appearance and motion. Nontender with no deformity. No lesions are appreciated. Cardiovascular: Regular rate and rhythm with a normal S1 and S2. Respiratory: No increased work of breathing, no retractions or nasal flaring. Abdomen/GI: Soft, non-tender, no distension. Vital Signs: 12:46 BP 120 / 78; Pulse 76; Resp 16; Temp 98.3; Pulse Ox 100% on R/A; Weight 58.97 kg; hb Height 5 ft. 6 in. ; Pain 2/10; 14:00 BP 117 / 74; Pulse 70; Resp 17; Pulse Ox 99% on R/A; rs5 15:50 BP 115 / 71; Pulse 77; Resp 17; Pulse Ox 98% on R/A; rs5 12:46 Body Mass Index 20.98 (58.97 kg, 167.64 cm) hb 12:46 Pain Scale: Adult hb MDM: 12:48 Medical Screening Exam initiated sb4 16:24 Data reviewed: vital signs, nurses notes, lab test result(s), radiologic studies, and sb4 as a result, I will discharge patient. Counseling: I had a detailed discussion with the patient and/or guardian regarding the historical points, exam findings, and any diagnostic results supporting the discharge/admit diagnosis, lab results, radiology results, the need for outpatient follow up, for definitive care, to return to the emergency department if symptoms worsen or persist or if there are any questions or concerns that arise at home. 10/11 12:48 Order name: CBC with Diff; Complete Time: 14:47 sb4 10/11 12:48 Order name: CMP; Complete Time: 14:58 sb4 10/11 12:48 Order name: Lipase; Complete Time: 14:58 sb4 10/11 12:48 Order name: Test, Urine; Complete Time: 15:38 sb4 10/11 12:48 Order name: Urinalysis w/ reflexes; Complete Time: 15:36 sb4 10/11 14:19 Order name: Chest Pa And Lat (2 Views) XRAY; Complete Time: 15:48 sb4 10/11 12:48 Order name: IV Saline Lock; Complete Time: 14:55 sb4 10/11 12:48 Order name: Labs collected and sent; Complete Time: 14:55 sb4 Administered Medications: No medications were administered Disposition: 21:26 Co-signature as Attending Physician, Tee Kent MD I agree with the assessment and rigo plan of care. Disposition Summary: 10/11/24 15:59 Discharge Ordered Notes: Location: Home sb4 Problem: new sb4 Symptoms: have improved sb4 Condition: Stable sb4 Diagnosis - Acute bronchitis, unspecified sb4 Followup: sb4 - With: Private Physician - When: As needed - Reason: Recheck today's complaints, Re-evaluation by your physician Discharge Instructions: - Discharge Summary Sheet sb4 - Acute Bronchitis, Adult sb4 Forms: - Patient Portal Instructions sb4 - Leadership Thank You Letter sb4 Prescriptions: - Prednisone 20 mg Oral Tablet - take 1 tablet ORAL route every 12 hours for 5 days; 10 tablet; Refills: 0, sb4 Product Selection Permitted Signatures: Dispatcher [employer] Tee Thomason MD MD cha Baxter, Heather, Mar Hensley RN, JENIFFER SWIFT sb4
--- NOTE | 2024-10-11 15:59 | ER ---
Nurse's Notes [facility] Name: Edilma Potter Age: 18 yrs Sex: Female : 2005 Arrival Date: 10/11/2024 Time: 12:07 Bed 10 Private MD: Diagnosis: Acute bronchitis, unspecified Presentation: 10/11 12:46 Chief complaint: Intermittent right flank pain and nausea x 1 week. Coronavirus screen: hb At this time, the client does not indicate any symptoms associated with coronavirus-19. Ebola Screen: No symptoms or risks identified at this time. Initial Sepsis Screen: Does the patient meet any 2 criteria? No. Patient's initial sepsis screen is negative. Does the patient have a suspected source of infection? No. Patient's initial sepsis screen is negative. Risk Assessment: Do you want to hurt yourself or someone else? Patient reports no desire to harm self or others. Onset of symptoms was October 04, 2024. 12:46 Method Of Arrival: Ambulatory hb 12:46 Acuity: ANETA 3 hb Triage Assessment: 13:00 General: Appears in no apparent distress. uncomfortable, Behavior is calm, cooperative. rs5 Historical: - Allergies: 12:48 No Known Allergies; hb - Home Meds: 12:48 None [Active]; hb - PMHx: 12:48 None; hb - PSHx: 12:48 None; hb - Immunization history:: Adult Immunizations up to date. - Infectious Disease History:: Denies. - Social history:: Smoking status: Patient denies any tobacco usage or history of. Screenin:[address] [facility] ED Fall Risk Assessment (Adult) History of falling in the last 3 months, rs5 including since admission No falls in past 3 months (0 pts) Confusion or Disorientation No (0 pts) Intoxicated or Sedated No (0 pts) Impaired Gait No (0 pts) Mobility Assist Device Used No (0 pt) Altered Elimination No (0 pt) Score/Fall Risk Level 0 - 2 = Low Risk Oriented to surroundings, Maintained a safe environment. 16:08 Abuse screen: Denies threats or abuse. Denies injuries from another. Nutritional ss screening: No deficits noted. Tuberculosis screening: Never had TB. Assessment: 13:00 General: Appears in no apparent distress. comfortable, Behavior is calm, cooperative. rs5 Neuro: Level of Consciousness is awake, alert, obeys commands, Oriented to person, place, time, situation. Respiratory: Airway is patent Respiratory effort is even, unlabored, Respiratory pattern is regular, symmetrical. GI: Patient currently denies diarrhea, nausea, vomiting. GI: Abdomen is non-distended. Derm: Skin is intact, is healthy with good turgor, Skin is dry, Skin is pink, warm \T\ dry. normal. 13:00 Pain: Complains of pain in right flank Pain currently is 3 out of 10 on a pain scale. rs5 Quality of pain is described as aching, Is continuous. Cardiovascular: Patient's skin is warm and dry. : No signs and/or symptoms were reported regarding the genitourinary system. EENT: No signs and/or symptoms were reported regarding the EENT system. Musculoskeletal: Circulation, motion, and sensation intact. Range of motion: intact in all extremities, Swelling absent. 14:05 Reassessment: Patient and/or family updated on plan of care and expected duration. Pain rs5 level reassessed. Patient is alert, oriented x 3, equal unlabored respirations, skin warm/dry/pink. 15:15 Reassessment: Patient and/or family updated on plan of care and expected duration. Pain rs5 level reassessed. Patient is alert, oriented x 3, equal unlabored respirations, skin warm/dry/pink. 16:01 Reassessment: Patient and/or family updated on plan of care and expected duration. Pain rs5 level reassessed. Patient is alert, oriented x 3, equal unlabored respirations, skin warm/dry/pink. Vital Signs: 12:46 BP 120 / 78; Pulse 76; Resp 16; Temp 98.3; Pulse Ox 100% on R/A; Weight 58.97 kg; hb Height 5 ft. 6 in. ; Pain 2/10; 14:00 BP 117 / 74; Pulse 70; Resp 17; Pulse Ox 99% on R/A; rs5 15:50 BP 115 / 71; Pulse 77; Resp 17; Pulse Ox 98% on R/A; rs5 12:46 Body Mass Index 20.98 (58.97 kg, 167.64 cm) hb 12:46 Pain Scale: Adult hb ED Course: 12:30 Patient arrived in ED. al6 12:47 Triage completed. hb 12:48 Mar Harrington PA-C is PHCP. sb4 12:48 Tee Kent MD is Attending Physician. sb4 12:48 Arm band placed on. hb 13:57 Nav Myles, RN is Primary Nurse. rs5 15:33 Chest Pa And Lat (2 Views) XRAY In Process Unspecified. EDMS 16:05 Provided Education on: discharge instructions . rs5 16:08 Patient has correct armband on for positive identification. Bed in low position. ss 16:08 No provider procedures requiring assistance completed. IV discontinued, intact, ss bleeding controlled, No redness/swelling at site. Pressure dressing applied. Administered Medications: No medications were administered Medication: 16:08 VIS not applicable for this client. ss Outcome: 15:59 Discharge ordered by MD. sb4 16:08 Discharged to home ambulatory, ss 16:08 Condition: good 16:08 Discharge instructions given to patient, Instructed on discharge instructions, follow up and referral plans. medication usage, Demonstrated understanding of instructions, follow-up care, medications, Prescriptions given X 1, 16:10 Patient left the ED. ss Signatures: Dispatcher [employer] EDTN Dawna Craig RN RN Liz Ozuna RN RN Mar Harrington PA-C PA-C sb4 Nav Myles, RN RN rs5 Autumn Agarwal Corrections: (The following items were deleted from the chart) 17:52 16:08 General: Appears in no apparent distress. comfortable, Behavior is calm, rs5 cooperative, ss 17:52 16:08 Neuro: Level of Consciousness is awake, alert, obeys commands, Oriented to rs5 person, place, time, situation, ss 17:52 16:08 Respiratory: Airway is patent Respiratory effort is even, unlabored, Respiratory rs5 pattern is regular, symmetrical, ss 17:52 16:08 Derm: Skin is intact, is healthy with good turgor, Skin is dry, Skin is pink, rs5 warm \T\ dry. normal, ss 17:52 16:08 GI: Patient currently denies diarrhea, nausea, vomiting, ss rs5 17:52 16:08 Musculoskeletal: Circulation, motion, and sensation intact. Range of motion: rs5 intact in all extremities, Swelling absent ss 17:52 16:08 GI: Abdomen is non-distended, ss rs5 19:00 13:00 Pain: Complains of pain in left flank Pain currently is 3 out of 10 on a pain rs5 scale. Quality of pain is described as aching, Is continuous, rs5
[2024-10-11 16:15] VITALS: BP 120/78; TEMP 98.3; O2SAT 100
== END 2024-10-11 16:10 | disposition home or self-care (01) ==
LOC: ER 12:07
DX: J20.9 Acute bronchitis, unspecified (principal)
CPT/HCPCS: 36415; 71046; 80053; 81001; 81025; 83690; 85025; 99283